=== PATIENT | male | born 2000 | race African-American/Black ===

== ENCOUNTER 2018-02-13 19:02 | Emergency (ER) | payer OTHER ==
[~2018-02-13] VITALS: Ht 177.8 cm; Wt 74.8 kg
[~2018-02-13 19:02] MED LIST: AMOX1TAB11 PO; CYCL10TA2 PO; OXYC1TAB7 PO; VALA500T PO
[2018-02-13 19:25] VITALS: BP 129/80
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
[2018-02-13] MEDS ORDERED: LIDOCAINE (700MG/PATCH) PATCH. TD ONE (20:15)
[2018-02-13] MEDS ORDERED: DEXAMETHASONE 4 MG TABLET PO ONE (20:15)
[2018-02-13] MEDS ORDERED: ORPH100T PO (21:17)
[2018-02-13] MEDS ORDERED: LIDO700A39 TP (21:17)
[2018-02-13] MEDS ORDERED: HYDR-3164 PO (21:17)
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
== END 2018-02-13 21:40 | disposition home or self-care (01) ==
LOC: ER 19:02
DX: M54.6 Pain in thoracic spine (principal); G89.11 Acute pain due to trauma; V49.59XA Passenger injured in collision with other motor vehicles in traffic accident, initial encounter; Y93.89 Activity, other specified; Y92.488 Other paved roadways as the place of occurrence of the external cause; Y99.8 Other external cause status
CPT/HCPCS: 72080; 99284; J8540

== ENCOUNTER 2018-05-16 21:24 | Emergency (ER) | payer OTHER ==
[~2018-05-16] VITALS: Ht 177.8 cm; Wt 75.7 kg
[~2018-05-16 21:24] MED LIST changes: +HYDR-3164 PO; +LIDO700A39 TP; +ORPH100T PO
[2018-05-16] MEDS ORDERED: KETOROLAC 30 MG/ML VIAL. IM ONE (23:30)
[2018-05-16 23:34] LABS: INFLUENZA A PATIENT NEGATIVE (NEGATIVE); INFLUENZA B PATIENT NEGATIVE (NEGATIVE)
[2018-05-17 00:04] LABS: BILIRUBIN,URINE SMALL (NEG); CLARITY,URINE CLEAR; COLOR,URINE YELLOW; NITRITE,URINE NEGATIVE (NEG); PROTEIN,URINE NEGATIVE (NEG-TRACE)
[2018-05-17 00:14] LABS: BACTERIA,URINE 0 /HPF (0-FEW); RBC,URINE OCC /HPF (0-2); SQUAMOUS EPITHELIAL CELL,UR OCC /LPF
[2018-05-17] MEDS ORDERED: LIDO1ADH59 TP (00:53)
[2018-05-17] MEDS ORDERED: CEPH500T PO (00:53)
[2018-05-17 01:30] VITALS: BP 125/82
[2018-05-17] MEDS ORDERED: cefTRIAXone IM 1 GM VIAL IM ONE (01:30)
[2018-05-17] MEDS ORDERED: cefTRIAXone IV Push 1 GM VIAL. IVP ONE (01:30)
[2018-05-17] MEDS ORDERED: AZITHROMYCIN 250 MG TABLET. PO ONE (01:30)
--- NOTE | 2018-05-17 02:49 | PHYS DOC ---
Past Medical History Past Medical History: No Pertinent History Past Surgical History: No Surgical History Alcohol Use: None Drug Use: None Adult General Chief Complaint Chief Complaint: BACK PAIN OR INJURY HPI HPI Patient is a 17 year old m p/w low back pain on and off for overa year. had extensive workup 2017 normal mri. 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 denies fever, has had mild sore throat and lymph node swelling in neck. no abdo pain, no vomitign no cough or sob. no dysuria no urinary frequency no b/ b incontinence. feels some pain in right hip area but no n/t/weakness in legs. Review of Systems Review of Systems Constitutional: Eyes: Denies change in visual acuity, redness, or eye pain [] HENT: Denies nasal congestion Respiratory: Denies cough or shortness of breath [] Cardiovascular: No additional information not addressed in HPI [] Integument: Denies rash or skin lesions [] Neurologic: Denies headache, focal weakness or sensory changes [] Endocrine: Denies polyuria or polydipsia [] All other systems were reviewed and found to be within normal limits, except as documented in this note. Current Medications Current Medications Current Medications Medications (Trade) Dose Ordered Sig/Ashanti Start Time Stop Time Status Last Admin Dose Admin Azithromycin (Zithromax) 1,000 mg 1X ONCE 05/17/18 01:30 05/17/18 01:31 DC 05/17/18 01:32 1,000 MG Ceftriaxone Sodium (Rocephin Im) 1 gm 1X ONCE 05/17/18 01:30 05/17/18 01:31 DC 05/17/18 01:33 1 GM Ceftriaxone Sodium (Rocephin) 1 gm 1X ONCE 05/17/18 01:30 05/17/18 01:31 DC Ketorolac Tromethamine (Toradol 30mg Vial) 30 mg 1X ONCE 05/16/18 23:30 05/16/18 23:31 DC 05/16/18 23:15 30 MG Allergies Allergies Allergies Coded Allergies Type Severity Reaction Last Updated Verified No Known Drug Allergies 11/20/14 No Physical Exam Physical Exam Constitutional: Well developed, well nourished, no acute distress, non-toxic appearance. [] HENT: Normocephalic, atraumatic, bilateral external ears normal, oropharynx erythema b/l with lad noted. Eyes: PERRLA, EOMI, conjunctiva normal, no discharge. [] Neck: Normal range of motion, no tenderness, supple, no stridor. [] Cardiovascular:Heart rate regular rhythm, no murmur [] Lungs & Thorax: Bilateral breath sounds clear to auscultation [] Abdomen: Bowel sounds normal, soft, no tenderness, no masses, no pulsatile masses. [] Skin: Warm, dry, no erythema, no rash. [] Back:b/l paraspinous ttp noted. no focal midline ttp noted. Extremities: No tenderness, no cyanosis, no clubbing, ROM intact, no edema. [] Neurologic: Alert and oriented X 3, normal motor function, normal sensory function, no focal deficits noted. [] Psychologic: Affect normal, judgement normal, mood normal. [] Current Patient Data Vital Signs Vital Signs Date Time Temp Pulse Resp B/P (MAP) Pulse Ox O2 Delivery O2 Flow Rate FiO2 05/17/18 01:30 98 125/82 (96) 97 Room Air 05/16/18 22:15 100.2 16 100.2 Lab Values Laboratory Tests Test 05/16/18 23:04 05/16/18 23:40 Influenza Type A Antigen Negative (NEGATIVE) Influenza Type B Antigen Negative (NEGATIVE) Urine Collection Type Unknown Urine Color Yellow Urine Clarity Clear Urine pH 7.0 Urine Specific [place] 1.020 Urine Protein Negative mg/dL (NEG-TRACE) Urine Glucose (UA) Negative mg/dL (NEG) Urine Ketones (Stick) Negative mg/dL (NEG) Urine Blood Negative (NEG) Urine Nitrite Negative (NEG) Urine Bilirubin Small (NEG) Urine Urobilinogen Dipstick 4.0 mg/dL (0.2 mg/dL) Urine Leukocyte Esterase Moderate (NEG) Urine RBC Occ /HPF (0-2) Urine WBC 11-20 /HPF (0-4) Urine Squamous Epithelial Cells Occ /LPF Urine Bacteria 0 /HPF (0-FEW) Urine Mucus Mod /LPF EKG EKG [] Radiology/Procedures Radiology/Procedures [] Impressions: my interp neg cxr. Course & Med Decision Making Course & Med Decision Making Pertinent Labs and Imaging studies reviewed. (See chart for details) []17-year-old male presenting to the emergency room with chief complaint of low back pain. This sounds musculoskeletal in nature neurologic exam is normal he has had this before he had an extensive workup in August 2017 including a normal MRI. No signs of spinal or central nervous system pathology at this time Noted the temperature 100.2 so we did a basic infectious workup there were 10- 20 white cells in the urine. No red blood cells not a story for renal colic. Consider STI patient was treated presumptively for this and given a prescription for Keflex given the pyuria chest x-ray and rapid strep were negative reassurance provided and return precautions were discussed in detail patient voiced understanding. Dragon Disclaimer Dragon Disclaimer This electronic medical record was generated, in whole or in part, using a voice recognition dictation system. Departure Departure Impression: Primary Impression: Back pain Disposition: HOME, SELF-CARE Condition: STABLE Referrals: NO PCP (PCP) Patient Instructions: Back Pain, Adult, [id number] Scripts Lidocaine (Ztlido) 1 Each Adh..patch 1 EACH TP BID PRN for PAIN, #10 PATCH Prov: BART HAMILTON MD 05/17/18 Cephalexin (CEPHALEXIN) 500 Mg Tablet 1 TAB PO QID, #28 TAB Prov: BART HAMILTON MD 05/17/18 BART HAMILTON MD May 17, 2018 02:49
--- NOTE | 2018-05-17 08:31 | RAD ---
Chest radiograph 05/16/2018 10:41 PM INDICATION: Fever, shortness of air COMPARISON: None available TECHNIQUE: Portable upright frontal view of the chest is provided. FINDINGS: The cardiomediastinal silhouette is within normal limits. There are no pleural effusions. There is no pulmonary vascular congestion. There is no pneumothorax. The lungs are clear. No significant osseous abnormality is identified. IMPRESSION: No acute cardiopulmonary process. Electronically signed by: Haily Grullon MD (05/17/2018 8:28 AM) [id number]
== END 2018-05-17 01:45 | disposition home or self-care (01) ==
LOC: ER 21:24
DX: M54.5 Low back pain (principal)
CPT/HCPCS: 71045; 81001; 87070; 87086; 87491; 87591; 87804; 87880; 96372; 99284; J0696; J1885; Q0144

== ENCOUNTER 2019-10-04 17:05 | Emergency (ER) | payer MEDICAID, OTHER ==
[~2019-10-04] VITALS: Ht 177.8 cm; Wt 80.0 kg
[~2019-10-04 17:05] MED LIST changes: +CEPH500T PO; +LIDO1ADH59 TP; +LIDO700A21 TP; -LIDO700A39 TP; -VALA500T PO; +VALA500T9 PO
[2019-10-04] MEDS ORDERED: IV NORMAL SALINE 1000ML BAG 1,000 ML IV ONE (18:30)
[2019-10-04] MEDS ORDERED: ONDANSETRON PF 4 MG/2 ML VIAL. IVP ONE (18:30)
[2019-10-04] MEDS ORDERED: MORPHINE SULFATE 4 MG/ML VIAL. IV ONE ×2 (18:30→21:00)
[2019-10-04 18:33] LABS: BASO % 0 % (0-3); EOS % 0 % (0-3); HEMOGLOBIN 16.8 g/dL (13.0-17.5); LYMPH # 0.3 x10^3/uL (1.0-4.8); LYMPH % 1 % (24-48); MEAN CORPUSCULAR HEMOGLOBIN 31 pg (25-35); MEAN CORPUSCULAR HGB CONC 35 g/dL (31-37); MEAN CORPUSCULAR VOLUME 89 fL (79-100); MONO # 0.8 x10^3/uL (0.0-1.1); MONO % 4 % (0-9); NEUT # 19.8 x10^3/uL (1.8-7.7); NEUT % 95 % (31-73); PLATELET COUNT 262 x10^3/uL (140-400); RED BLOOD COUNT 5.42 x10^6/uL (4.30-5.70); RED CELL DISTRIBUTION WIDTH 12.6 % (11.5-14.5); WHITE BLOOD COUNT 20.9 x10^3/uL (4.0-11.0)
[2019-10-04 18:43] LABS: CALCIUM 8.9 mg/dL (8.5-10.1); CREATININE 1.4 mg/dL (0.7-1.3); GFR 78.2; POTASSIUM 3.5 mmol/L (3.5-5.1)
[2019-10-04 18:51] LABS: ALBUMIN 4.1 g/dL (3.4-5.0); ALBUMIN/GLOBULIN RATIO 1.1 (1.0-1.7); TOTAL BILIRUBIN 1.2 mg/dL (0.2-1.0); TOTAL PROTEIN 7.8 g/dL (6.4-8.2)
[2019-10-04 19:05] LABS: % BANDS 10 % (0-9); % LYMPHS 5 % (24-48); % MONOS 5 % (0-10); % SEGS 80 % (35-66)
[2019-10-04 19:06] LABS: PLT ESTIMATE ADEQUATE (ADEQUATE); TOXIC GRANULATION SLIGHT; TOXIC VACUOLATION SLIGHT
[2019-10-04] MEDS ORDERED: IOHEXOL 300 MG/ML 100ML VIAL. IV ONE (19:15)
--- NOTE | 2019-10-04 19:49 | RAD ---
CT abdomen and pelvis with contrast History: Abdominal pain, fever, chills Technique: After the administration of intravenous contrast, CT imaging was performed of the abdomen and pelvis. No oral contrast was given as per request. Multiplanar images are reviewed. Exposure: One or more of the following individualized dose reduction techniques were utilized for this examination: 1. Automated exposure control 2. Adjustment of the mA and/or kV according to patient size 3. Use of iterative reconstruction technique. Comparison: None Findings: There is no significant abnormality of the visualized lung bases. There is no significant abnormality of the liver, spleen, pancreas, adrenal glands. Both kidneys enhance without hydronephrosis. There is 0.7 cm hypodense lesion of the mid to inferior right kidney otherwise difficult to accurately characterize due to small size. Gallbladder is present without obvious intraluminal abnormality by CT. Accurate evaluation of bowel is limited without oral contrast. There is appearance of degree of long segment wall thickening involving the ascending through transverse colon and questionably minimally of the descending colon. However there is no adjacent inflammatory-type change. Bowel is not significantly dilated. Normal caliber appendix is visualized without adjacent inflammatory change. Impression: 1. Suboptimally evaluated without oral contrast, there is degree of loss segment colonic wall thickening as may be seen with colitis. There is no CT evidence of acute appendicitis. Electronically signed by: Mervin Aguilar MD (10/04/2019 7:46 PM) [facility]
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
[2019-10-04] MEDS ORDERED: CIPROFLOXACIN 400MG PREMIX 200 ML IV ONE (20:15)
[2019-10-04 20:37] LABS: BILIRUBIN,URINE NEGATIVE (NEG); CLARITY,URINE CLEAR; COLOR,URINE YELLOW; NITRITE,URINE NEGATIVE (NEG); PROTEIN,URINE NEGATIVE (NEG-TRACE); UROBILINOGEN,URINE 0.2 mg/dL (0.2 mg/dL)
[2019-10-04 20:46] LABS: BACTERIA,URINE FEW /HPF (0-FEW); SQUAMOUS EPITHELIAL CELL,UR OCC /LPF
[2019-10-04 22:06] VITALS: BP 107/56
[2019-10-04] MEDS ORDERED: CIPR500T94 PO (22:09)
[2019-10-04] MEDS ORDERED: HYDR-3164 PO (22:09)
[2019-10-04] MEDS ORDERED: METR500T PO (22:09)
[2019-10-04] MEDS ORDERED: ALBU2.5V5 NEB (22:12)
[2019-10-04] MEDS ORDERED: ONDA4TAB7 PO (22:19)
--- NOTE | 2019-10-05 05:59 | EKG ---
[facility] [address] [place] [address] Test Date: 2019-10-04 Test Time: 18:31:59 Pat Name: LUAN HEAD Department: Room: Gender: M [employer] Developer: : [email or web address] Requested By: NATASHA CHIU Order Number: [id number] Reading MD: Measurements Intervals [place] Rate: 107 P: 54 SD: 168 QRS: 73 QRSD: 84 T: 29 QT: 306 QTc: 414 Interpretive Statements SINUS TACHYCARDIA LEFT ATRIAL ABNORMALITY ABNORMAL ECG RI6.01 No previous ECG available for comparison
== END 2019-10-04 22:16 | disposition home or self-care (01) ==
LOC: ER 17:05
DX: K52.9 Noninfective gastroenteritis and colitis, unspecified (principal); R50.9 Fever, unspecified; M54.5 Low back pain; R10.13 Epigastric pain; D72.829 Elevated white blood cell count, unspecified; Z79.899 Other long term (current) drug therapy
CPT/HCPCS: 36415; 74177; 80053; 81001; 83690; 84484; 85007; 85025; 93005; 96361; 96365; 96368; 96375; 96376; 99285; J0744; J2270; J2405; J3490; J7030; Q9967

== ENCOUNTER 2019-10-05 11:29 | Emergency (ER) | payer SELFPAY ==
[2019-10-04 22:06] VITALS: BP 107/56
[~2019-10-05 11:29] MED LIST changes: +ALBU2.5V5 NEB; +CIPR500T94 PO; +METR500T PO; +ONDA4TAB7 PO
== END 2019-10-05 12:22 | disposition left against medical advice (07) ==
LOC: ER 11:29
DX: R06.02 Shortness of breath (principal); Z53.21 Procedure and treatment not carried out due to patient leaving prior to being seen by health care provider